=== PATIENT | male | born 1975 | race American Indian/Alaskan Native ===

== ENCOUNTER 2019-08-08 14:10 | Emergency (ER) | payer SELFPAY ==
--- NOTE | 2019-08-08 15:56 | Emergency Department Report ---
Blank Doc - Documentation Documentation: 44-year-old male that presents with left foot pain x2 days, This initial assessment/diagnostic orders/clinical plan/treatment(s) is/are subject to change based on patient's health status, clinical progression and re- assessment by fellow clinical providers in the ED. Further treatment and workup at subsequent clinical providers discretion. Patient/guardians urged not to elope from the ED as their condition may be serious if not clinically assessed and managed. Initial orders include: 1- Patient sent to [facility] for further evaluation and treatment 2- xrays
--- NOTE | 2019-08-08 16:37 | XRay Report ---
LEFT FOOT 3 VIEW(S) INDICATION / CLINICAL INFORMATION: Pain. Iron fell on the patient's foot. COMPARISON: None available. FINDINGS: BONES / JOINT(S): No acute fracture or subluxation. No significant arthritis. Incidental note of bipa rtite medial and lateral great toe sesamoid bones. SOFT TISSUES: No significant soft tissue swelling. Very subtle vascular calcifications which can be s een in diabetes and/or renal failure. ADDITIONAL FINDINGS: None. Signer Name: Jf Burgess MD Signed: 08/08/2019 4:33 PM Workstation Name: [id number]
[2019-08-08] MEDS ORDERED: KETOROLAC 30 MG/1 ML INJ IM ONE (19:42)
[2019-08-08] MEDS ORDERED: HYDROcodone/ACETAMINOPHEN 5-325 MG TAB PO ONE (19:42)
[2019-08-08] MEDS ORDERED: LORazepam 2 MG/ML VIAL ONE (20:33)
--- NOTE | 2019-08-08 20:36 | Emergency Department Report ---
HPI - General Chief Complaint: Extremity Injury, Lower Time Seen by Provider: 08/08/19 15:55 - HPI HPI: 44-year-old -[place] male presents to the emergency department with a complaint of nontraumatic pain to the left great toe and the ball of the foot just below this toe for the past 2 days. He feels that the area is swollen and it is causing him enough pain to where he has difficulty bearing weight and ambulating. He has not taken anything for his symptoms prior to presentation. No recent travel or sick contacts at home. ED Past Medical Hx - Past Medical History Previous Medical History?: No Additional medical history: dental caries - Surgical History Past Surgical History?: No - Social History Smoking Status: Never Smoker Substance Use Type: None - Medications Home Medications: Home Medications Medication Instructions Recorded Confirmed Last Taken Type Oxycodone HCl/Acetaminophen 1 each PO Q6HR PRN #14 tablet 02/23/14 Unknown Rx [Percocet 7.5/325 mg] Penicillin Vk [Veetids TAB] 2 tab PO BID #40 tablet 02/23/14 Unknown Rx Amoxicillin [Trimox CAP] 500 mg PO Q8H #30 capsule 05/31/14 Unknown Rx oxyCODONE /ACETAMINOPHEN [Percocet 1 tab PO Q6HR PRN #10 tablet 05/31/14 Unknown Rx 5/325] Ibuprofen [Motrin 800 MG tab] 800 mg PO Q8HR PRN #20 tablet 08/08/19 Unknown Rx ED Review of Systems ROS: Stated complaint: LFT FOOT GOUT/PAIN Other details as noted in HPI Comment: All other systems reviewed and negative Musculoskeletal: joint swelling, arthralgia. denies: back pain Skin: denies: rash, lesions Neurological: denies: numbness, paresthesias Physical Exam - Physical Exam Vital Signs: Vital Signs 08/08/19 14:30 Temperature 98.6 F Pulse Rate 70 Respiratory 18 Rate Blood Pressure 149/110 O2 Sat by Pulse 97 Oximetry Physical Exam: GENERAL: The patient is well-developed well-nourished. HENT: Normocephalic. Atraumatic. Patient has moist mucous membranes. EYES: Extraocular motions are intact. NECK: Supple. Trachea is midline. SKIN: Skin is warm and dry. NEURO: The patient is awake, alert, and oriented. The patient is cooperative. Normal speech. MUSCULOSKELETAL: There is tenderness to palpation along the length of the left great toe and to the plantar portion at the ball of the foot at the base of the great toe. There is no evidence of acute injury. ED Course Vital Signs 08/08/19 14:30 Temperature 98.6 F Pulse Rate 70 Respiratory 18 Rate Blood Pressure 149/110 O2 Sat by Pulse 97 Oximetry ED Medical Decision Making - Radiology Data Radiology results: image reviewed interpreted by me: X-ray of the left foot does not show any fracture, dislocation, or any other acute process. - Medical Decision Making Patient presents with a 1 to 2-day history of atraumatic pain in the left great toe and to the distal foot at the base of this toe. On examination there is reproducible tenderness to palpation but there is no significant swelling, erythema, warmth. A uric acid level was checked that came back at 4.4 so this does not appear consistent with gout. An x-ray was done that does not show any fracture, dislocation, or any other acute process. Patient appears safe for discharge home at this time. He was given some crutches to be nonweightbearing secondary to his discomfort and was given multiple referrals for podiatry. He will return to the ER with any worsening of his symptoms or any acute distress. - Differential Diagnosis Occult fracture, gout, tendinitis Critical Care Time: No Critical care attestation.: If time is entered above; I have spent that time in minutes in the direct care of this critically ill patient, excluding procedure time. ED Disposition Clinical Impression: Toe pain, left, Left foot pain Disposition: TO HOME OR SELFCARE Is pt being admited?: No Condition: Stable Instructions: Arthralgia (ED) Additional Instructions: Please follow-up with a primary care physician in the next few days. I am giv ing you a referral for 2 different local podiatrists, foot doctors, to follow-up regarding your toe and foot pain. Return to the emergency department with any worsening of your symptoms or any acute distress. Prescriptions: Ibuprofen [Motrin 800 MG tab] 800 mg PO Q8HR PRN #20 tablet PRN Reason: Pain , Severe (7-10) Referrals: PRIMARY MD CALVIN [Primary Care Provider] - 3-5 Days TEZ ENGLAND MD [Staff Physician] - 3-5 Days SOLIS ESQUIVEL DPM [Staff Physician] - 3-5 Days Time of Disposition: 20:36
[2019-08-08 21:02] VITALS: BP 118/59
== END 2019-08-08 20:45 | disposition home or self-care (01) ==
LOC: ED 14:10
DX: M79.675 Pain in left toe(s) (principal); M79.672 Pain in left foot; Z79.1 Long term (current) use of non-steroidal anti-inflammatories (NSAID); Z79.2 Long term (current) use of antibiotics; Z79.899 Other long term (current) drug therapy
CPT/HCPCS: 36415; 73630; 84550; 96372; 99284; J1885; J2060